=== PATIENT | male | born 1975 | race Caucasian/White ===

== ENCOUNTER 2023-12-13 13:13 | Outpatient (CLI) | payer OTHER, SELFPAY | END 2023-12-13 13:14 | disposition home or self-care (01) | PROVIDERS: PCP Family Medicine; Visit Provider Family Medicine | DX: I10 Essential (primary) hypertension (principal); Z13.220 Encounter for screening for lipoid disorders; Z12.5 Encounter for screening for malignant neoplasm of prostate | CPT/HCPCS: 80061; 80076; G0103 ==

== ENCOUNTER 2023-12-23 15:08 | Outpatient (CLI) | payer OTHER, SELFPAY ==
--- NOTE | 2024-01-15 09:59 | P.SLS_ITS ---
Sleep Study Details Details Interpreting Provider: Castro Date of Sleep Study: 12/23/23 Sleep Study Details: STUDY TYPE:? Home unattended ? BMI:? 40 ORDERING PROVIDER:Mani Calzada INDICATION:? Concerned about sleep apnea ? SLEEP SUMMARY:? 508 minutes monitored RESPIRATORY SUMMARY:? AHI 73.7, central apnea index 22 PERIODIC LIMB MOVEMENTS OF SLEEP:? Not recorded CARDIAC:? Range 49-114, mean 81.1 IMPRESSION:? Mixed central and obstructive sleep apnea, predominantly obstructive RECOMMENDATION: Recommend in-lab titration because of the presence of central a pneas. Weight loss is also recommended.
== END 2023-12-23 15:09 | disposition home or self-care (01) ==
LOC: SLEEP 15:08
PROVIDERS: PCP Family Medicine; Visit Provider Family Medicine
DX: G47.33 Obstructive sleep apnea (adult) (pediatric) (principal)
CPT/HCPCS: 95806

== ENCOUNTER 2024-02-19 20:49 | Outpatient (CLI) | payer OTHER, SELFPAY ==
--- NOTE | 2024-02-26 08:34 | W.PM.SLEEP ---
Sleep Study Details Details Interpreting Provider: Castro Date of Sleep Study: 02/19/24 Sleep Study Details: STUDY TYPE:? Hospital-based with CPAP titration ? BMI:? 39.3 ORDERING PROVIDER:? Castro INDICATION:? Previous positive study with frequent central apneas ? SLEEP SUMMARY:? 288 minutes total sleep time RESPIRATORY SUMMARY:? The overall AHI for this study is 28.6 there were still central apneas and but mainly obstructive apneas and hypopneas noted. Mean oxygen awake was 95 minimum oxygen during the study was 838.1 minutes oxygen was between 80 and 88% CPAP titration was performed at a pressure of 9 AHI decreased to 3.7 and there was REM stage sleep mainly in the nonsupine position. Bilevel titration was then attempted but the lowest AHI obtained was 23.2. PERIODIC LIMB MOVEMENTS OF SLEEP:? None CARDIAC:? Awake 86 asleep 84, no arrhythmias noted IMPRESSION:? Incomplete titration for both for CPAP and bilevel. The very best pressure from this study was 14 which included REM sleep and decreased AHI 3.7. RECOMMENDATION: Would recommend repeat titration for ASV. If echocardiogram is not been performed it should be and he patient should have an adequate ejection fraction prior to an ASV titration.
== END 2024-02-19 20:50 | disposition home or self-care (01) ==
LOC: SLEEP 20:49
PROVIDERS: PCP Family Medicine; Visit Provider Otolaryngology
DX: G47.33 Obstructive sleep apnea (adult) (pediatric) (principal)
CPT/HCPCS: 95811

== ENCOUNTER 2024-11-09 18:46 | Outpatient (CLI) | payer OTHER, SELFPAY | END 2024-11-09 18:47 | disposition home or self-care (01) | PROVIDERS: PCP Family Medicine; Visit Provider Family Medicine | DX: I10 Essential (primary) hypertension (principal); E66.9 Obesity, unspecified; Z12.5 Encounter for screening for malignant neoplasm of prostate | CPT/HCPCS: 80053; 80061; G0103 ==